=== PATIENT | female | born 2000 | race Caucasian/White ===

== ENCOUNTER → 2019-01-26 | Outpatient (CLI) | payer OTHER ==
--- NOTE | 2019-01-26 15:25 | REP ---
MRI RIGHT KNEE WITHOUT CONTRAST: HISTORY: Right knee pain. Question bucket-handle tear. Comparison MRI right knee July 23, 2016. Comparison knee radiographs June 12, 2015. The patient is status post ACL reconstruction. TECHNIQUE: Axial, coronal, and sagittal imaging planes utilized. T1- and T2-weighted scans were obtained in the usual fashion with and without fat saturation. MRI FINDINGS: There is a moderate size joint effusion. Cortical and medullary bone signal intensity are normal except for the presence of the distal femoral and proximal tibial tunnel associated with ACL reconstruction surgery. The tendon graft for the ACL appears intact in its synovial and intraosseous extent. Patellar and quadriceps tendons are intact. There is no evidence of medial or lateral collateral ligament disruption. There is no visible Dias's cyst. There is an extensive tear of the medial meniscus with displaced meniscal material extending towards the intercondylar notch. This is indicative of a large displaced bucket-handle tear of the medial meniscus. No lateral meniscal tear is appreciated. The articular cartilage surfaces are smooth. No other significant finding. IMPRESSION: Large displaced bucket-handle tear medial meniscus. Moderate to large joint effusion. Status post ACL reconstruction surgery. Electronically Signed by Andrew Sánchez MD 01/26/2019 05:31 P
== END ==
LOC: M RAD 12:30
PROVIDERS: ATTEND Orthopaedic Surgery Sports Medicine
DX: M25.461 Effusion, right knee (principal); S83.251A Bucket-handle tear of lateral meniscus, current injury, right knee, initial encounter; X58.XXXA Exposure to other specified factors, initial encounter; Y92.9 Unspecified place or not applicable

== ENCOUNTER 2019-02-03 11:43 | Day surgery (SDC) | payer OTHER ==
[~2019-02-03] VITALS: Ht 175.3 cm; Wt 60.8 kg
[2019-02-03] MEDS ORDERED: dexameTHASONE 10 MG/1 ML VIAL PRES.FREE (J1100) ONE (11:44)
[2019-02-03] MEDS ORDERED: ROPIvacaine 0.5% 30 ML INJECTION (J2795 PER 1MG) ONE (11:44)
[2019-02-03] MEDS ORDERED: ceFAZolin 2 GM/D5W 50 ML IV BAG (J0690 PER 500MG) As Ordered ONE (12:09)
[2019-02-03 12:16] LABS: URINE PREG TEST NEGATIVE (NEGATIVE)
[2019-02-03] MEDS ORDERED: MIDAZOLAM INJ 2 MG/2 ML VIAL (J2250) As Ordered ONE ×2 (13:31→13:50)
[2019-02-03] MEDS ORDERED: fentaNYL 100 MCG/2 ML INJECTION (J3010) As Ordered ONE ×2 (13:31→13:51)
[2019-02-03] MEDS ORDERED: PROPOFOL 200 MG/20 ML VIAL As Ordered ONE (13:49)
[2019-02-03] MEDS ORDERED: ONDANSETRON 4MG/2ML VIAL (J2405) As Ordered ONE (13:49)
[2019-02-03] MEDS ORDERED: LIDOCAINE 2% INJ 100 MG/5 ML SDV (FOR ANES.) As Ordered ONE (13:49)
[2019-02-03] MEDS ORDERED: dexameTHASONE 4 MG/ML 1ML VIAL (J1100) As Ordered ONE (13:49)
[2019-02-03] MEDS ORDERED: fentaNYL 100 MCG/2 ML INJECTION (J3010) IV ONE (14:00)
[2019-02-03] MEDS ORDERED: MIDAZOLAM INJ 2 MG/2 ML VIAL (J2250) IV ONE (14:00)
[2019-02-03] MEDS ORDERED: ROPIvacaine 0.5% 30 ML INJECTION (J2795 PER 1MG) As Ordered ONE (14:17)
[2019-02-03] MEDS ORDERED: PHENYLephrine HCL 500 MCG/5 ML (100MCG/ML) SYRINGE (J2370) As Ordered ONE (14:58)
[2019-02-03] MEDS ORDERED: KETOROLAC 60 MG/2 ML VIAL (J1885) As Ordered ONE (15:34)
[2019-02-03] MEDS: fentaNYL 100 MCG/2 ML INJECTION (J3010) IV PRN ×4 (16:10→16:33)
[2019-02-03] MEDS ORDERED: LR 1,000 ML IV SCH ×2 (16:15)
[2019-02-03] MEDS ORDERED: PERCOCET 5MG/325MG TAB PO PRN ×2 (16:15→17:00)
[2019-02-03] MEDS ORDERED: MORPHINE 4 MG/ML 1ML VIAL/SYRINGE (J2270) IV PRN (16:15)
[2019-02-03] MEDS ORDERED: ACETAMINOPHEN TAB 650MG DOSE (2X325MG) PO PRN (16:15)
[2019-02-03] MEDS ORDERED: ONDANSETRON 4MG/2ML VIAL (J2405) IV PRN ×2 (16:15)
[2019-02-03 17:05] VITALS: BP 129/71
--- NOTE | 2019-02-03 19:02 | RO ---
DATE OF PROCEDURE: 02/03/2019 PREOPERATIVE DIAGNOSIS: POSTOPERATIVE DIAGNOSIS: PLANNED PROCEDURE: Right knee arthroscopy intra-articular surgery, fragment versus repair medial meniscus. PROCEDURE PERFORMED: Right knee arthroscopy, debridement medial femoral condyle and debridement of cyclops lesion. SURGEON: Mauricio Esquivel MD DEATH SURVEYS CODER: Mat Cottrell ANESTHESIA: General anesthesia plus block. OPERATIVE PREAMBLE: This 18-year-old female had ACL reconstruction enhancing autograft Dr. Abad a few years ago. She was experiencing intermittent locking up of her knee with blocked extension when I saw her now about 10 days ago. We had obtained a preoperative MRI that showed what appeared to be a bucket handle medial meniscus tear. I talked about the pros, cons, risks and benefits of going ahead with arthroscopy, intra-articular surgery and debridement versus repair of the medial meniscus injury. I also counseled her as to examination of the ACL while under anesthetic. The ACL appeared intact on MRI, however, with the block to extension the physical exam is notoriously unreliable for this, so I did psychologist counseling her of the possibility of going ahead with revision ACL reconstruction. I examined Kavita in holding and marked the side and confirmed that she wished to proceed. DESCRIPTION OF PROCEDURE: The patient was brought to the operating theater. She was placed supine on the operating room table. Site and the patient was confirmed. Two grams of IV Ancef was administered prior to the start the case. 24 inch tourniquet was applied to the right thigh. A lateral post was used. Leg was prepped and draped in the usual sterile fashion. A preoperative time-out was performed. Leg was elevated and then the tourniquet was inflated to 250 mmHg. I began by making a high anterolateral portal. I thoroughly performed an intra-articular examination of the knee. Pump pressure was 35 mmHg. The undersurface of the patella appeared to have some grade 1 softening of the cartilage. The trochlea also had some grade 1 softening, but no obvious full-thickness defects. I went into the latera gutter, examined the popliteus. There were no obvious loose bodies there. I then examined the lateral compartment. This was normal. No obvious cartilage lesions. Meniscus was normal. There was no obvious instability of the meniscus. Then I examined the notch. There is what appeared to be a soft tissue mass just anterior to the ACL blocking extension. I thoroughly debrided this away. She achieved full extension at that point easily. Examination of the PCL looked normal. The ACL graft fibers were definitely vertical, nearly 90 degrees. There were some fibers remaining. The fibers did not appear taut but they were definitely not loose. They did appear to be inserting properly as well as a normal tibial footprint. Femoral footprint was definitely high in the notch and vertical. I then examined the medial compartment. There were grade 2 changes on both the femur and tibia that I debrided. Slightly worse near grade 3 changes were noted on the lateral aspect of the medial femoral condyle. Again I debrided these away. I examined the meniscus. The meniscus did appear intact along its length with stable roots. There is some meniscal capsular sprain on the lateral position of the medial meniscus at approximately the junction of the mid body and the posteromedial horn. This was not unstable. I then turned my attention to the clinical exam of the knee again. Preoperatively it felt like there was a grade 1 Danuta with my examination under anesthetic and no pivot shift. Now that I was able to get her into full extension with debriding the cyclops lesion, she definitely had a grade 2 pivot shift and a grade 1 Danuta with a firm endpoint. Examination of the ACL intra-articularly with anterior drawer revealed it to be stable and the fibers to be solid, but slightly diminutive in their appearance. I also examined the medial gutter and again there was no loose body. There was also some small scar tissue just posterior to the patellar tendon that I also debrided. At that point, I decided to terminate the procedure as my preoperative goal of achieving full range of motion was achieved. We thoroughly irrigated the knee, followed by infiltrating the portals with 4 mL each of 0.5% Marcaine and then closing the portal sites with interrupted #3-0 Ethilon suture. Tourniquet was taken down. Adaptic as well as sterile 4 x 8 gauze, ABD dressing and sterile 6 inch jean-pierre bandage was applied to the knee. The patient was transferred off the operating table and taken to postanesthetic care in stable condition. All sponge, needle, and instrument counts were correct. There were no complications or excessive blood loss associated with the procedure. PLAN: Plan for the patient at this point is to be weightbearing as tolerated. They do not need a brace. I did speak with her mother after surgery and she is asking for new custom fitted ACL brace which we will have to prescribe in clinic. I have encouraged her to weightbear as tolerated and to try to rehabilitation the knee aggressively at this point over the next few weeks. I have discussed my findings with her mother and also talked to her in clinic once the anesthetic had worn off about the definite possibility of trying to return to aggressive sports and the possibility of having persistent intrarotatory instability of her knee. I think she will gain her range of motion back at this point but I am definitely worried that she may have some residual instability given the vertical nature of the graft and the definite pivot-shift under anesthesia. If she experiences instability episodes of the knee then we will definitely know how to proceed from there and she will require revision ACL reconstruction. Looking forward to seeing her back in the clinic in approximately 1-2 weeks time.
[2019-02-04] MEDS ORDERED: DESFLURANE 240 ML INHALANT As Ordered ONE (13:29)
[2019-02-04] MEDS ORDERED: SEVOFLURANE INHAL SOLN 250 ML BTL As Ordered ONE ×2 (13:30→13:31)
== END 2019-02-03 18:30 | disposition home or self-care (01) ==
LOC: M SDC 11:43
PROVIDERS: ATTEND Orthopaedic Surgery Sports Medicine
DX: S83.211A Bucket-handle tear of medial meniscus, current injury, right knee, initial encounter (principal); Z88.0 Allergy status to penicillin; X58.XXXA Exposure to other specified factors, initial encounter; Y92.89 Other specified places as the place of occurrence of the external cause; Y93.9 Activity, unspecified; Y99.9 Unspecified external cause status
CPT/HCPCS: 29877; 64447; 84703; J0690; J1100; J1885; J2250; J2370; J2405; J2795; J3010

== ENCOUNTER 2019-04-14 07:59 | Outpatient (RCR) | payer OTHER | END 2019-04-17 | LOC: M PT 07:59 | PROVIDERS: ATTEND Orthopaedic Surgery Sports Medicine | DX: S83.211D Bucket-handle tear of medial meniscus, current injury, right knee, subsequent encounter (principal); X58.XXXD Exposure to other specified factors, subsequent encounter ==

== ENCOUNTER 2019-04-20 08:00 | Outpatient (RCR) | payer OTHER | END 2019-05-18 | LOC: M PT 08:00 | PROVIDERS: ATTEND Orthopaedic Surgery Sports Medicine | DX: S83.211D Bucket-handle tear of medial meniscus, current injury, right knee, subsequent encounter (principal) ==

== ENCOUNTER 2020-01-23 05:58 | Day surgery (SDC) | payer OTHER ==
[~2020-01-23] VITALS: Ht 172.7 cm; Wt 61.2 kg
[~2020-01-23 05:58] MED LIST: ISIB1TAB PO
[2020-01-23] MEDS ORDERED: LR 1,000 ML IV ONE (06:00)
[2020-01-23] MEDS ORDERED: MIDAZOLAM INJ 2 MG/2 ML VIAL (J2250) As Ordered ONE (06:43)
[2020-01-23] MEDS ORDERED: ROCURONIUM BROMIDE 50 MG/5 ML VIAL As Ordered ONE (06:44)
[2020-01-23] MEDS ORDERED: fentaNYL 250 MCG/5 ML INJECTION (J3010) As Ordered ONE (06:44)
[2020-01-23] MEDS ORDERED: dexameTHASONE 4 MG/ML 1ML VIAL (J1100 PER 1MG) As Ordered ONE ×3 (06:44→06:50)
[2020-01-23] MEDS ORDERED: SUGAMMADEX SODIUM 500 MG/5 ML VIAL (BRIDION) As Ordered ONE (06:44)
[2020-01-23] MEDS ORDERED: propofoL 200 MG/20 ML VIAL As Ordered ONE ×2 (06:44→06:51)
[2020-01-23] MEDS ORDERED: ONDANSETRON 4MG/2ML VIAL (J2405) As Ordered ONE ×2 (06:44→09:04)
[2020-01-23] MEDS ORDERED: LIDOCAINE 2% INJ 100 MG/5 ML SDV (FOR ANES.) As Ordered ONE (06:44)
[2020-01-23] MEDS ORDERED: PHENYLephrine HCL 500 MCG/5 ML (100MCG/ML) SYRINGE (J2370) As Ordered ONE (06:44)
[2020-01-23] MEDS ORDERED: ePHEDrine SULFATE 25 MG/5 ML(5MG/ML) SYRINGE As Ordered ONE (06:45)
[2020-01-23] MEDS ORDERED: CLINDAMYCIN 600 MG/50 ML PREMIX BAG As Ordered ONE (07:12)
[2020-01-23] MEDS ORDERED: CLINDAMYCIN 600 MG in IV 1 EA IV ONE (07:15)
[2020-01-23] MEDS ORDERED: ROPIvacaine 0.5% 30 ML INJECTION (J2795 PER 1MG) As Ordered ONE (07:20)
[2020-01-23] MEDS ORDERED: ESMOLOL INJ 100MG/10ML VIAL As Ordered ONE (07:49)
[2020-01-23] MEDS ORDERED: ACETAMINOPHEN 1000MG 100ML IV BTL (OFIRMEV) (J0131 PER 10MG) As Ordered ONE (07:56)
[2020-01-23] MEDS ORDERED: fentaNYL 100 MCG/2 ML INJECTION (J3010) As Ordered ONE (09:01)
[2020-01-23] MEDS: fentaNYL 100 MCG/2 ML INJECTION (J3010) IV PRN ×4 (09:03→09:18)
[2020-01-23] MEDS ORDERED: LR 1,000 ML IV SCH ×2 (09:15→10:15)
[2020-01-23] MEDS ORDERED: oxyCODONE 5MG TAB PO PRN (09:15)
[2020-01-23] MEDS ORDERED: MORPHINE 2 MG/ML 1ML VIAL (J2270) IV PRN ×2 (09:15→10:15)
[2020-01-23] MEDS ORDERED: KETOROLAC 30 MG/ML VIAL (J1885) As Ordered ONE (09:59)
[2020-01-23] MEDS ORDERED: MORPHINE 10 MG/ML 1ML VIAL (J2270) As Ordered ONE (09:59)
--- NOTE | 2020-01-23 10:06 | RO ---
DATE OF PROCEDURE: 01/23/2020 PREOPERATIVE DIAGNOSIS: Right knee bucket-handle medial meniscus tear. POSTOPERATIVE DIAGNOSIS: Right knee bucket-handle medial meniscus tear. PLANNED PROCEDURE: Right knee arthroscopy and partial medial meniscectomy versus repair. PROCEDURE PERFORMED: Right knee arthroscopy, medial meniscus repair. SURGEON: Dr. Mauricio Esquivel. MOVEMENT THERAPIST: Neil Hernandez PA-C. ANESTHESIA: General. 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 She twisted her knee. MRI showed bucket-handle meniscus tear. We talked about the pros and cons, risks and benefits of going ahead with the procedure, include but not limited to infection pain, stiffness bleeding, neurovascular injury, osteoarthritis, failure of the repair blood clots, and other risks, as well as the risk of coronavirus due to the current outbreak. She wished to go ahead. I reiterated the risk in preoperative holding, marked the right lower extremity and proceeded to surgery. DESCRIPTION OF PROCEDURE: The patient was brought to operating theater. 600 mg IV clindamycin was administered for preoperative antibiotic prophylaxis due to allergy to penicillin. The patient was placed supine on the operating table. Tourniquet was applied the right thigh appropriately padded. All bony prominences were padded. positioner was used on the patient's right side. General anesthesia was induced. Preoperative time-out was performed to confirm the site, patient and the surgery. Limb was prepped and draped the usual sterile fashion allowing over 3 minutes prep solution drying time. Limb was elevated, tourniquet was inflated to 250 mmHg for the duration of the case. Standard high anterolateral arthroscopy portal was created. Full intra-articular extent of the knee was examined. Patellofemoral joint was normal. Lateral portal was normal. Anterior cruciate ligament (ACL) and posterior cruciate ligament (PCL) appeared normal similar to last time I performed arthroscopy for her. There was an obvious displaced into the notch medial meniscus bucket-handle tear. This extended from the posterior horn to approximately the mid aspect of the meniscus. It was in the peripheral one-third. It reduced nicely and the meniscus tissue appeared normal. As such I elected to go ahead with the repair versus an excision. The capsular side was then debrided to bleeding edges using a shaving instrument. The meniscus was then reduced and held in place. I used 6 Saavedra-Nephew a 30 degree reverse curved FA all inside suture implants. I used two at the apex of the tear as well as two posteriorly on the superior surface, and two posteriorly on the inferior surface. This achieved good repair. Repair assessed a stable and solid to probing. The knee was thoroughly irrigated. Small cartilage fraying of the femur and tibial sides of the medial compartment was debrided to stable margins. Arthroscopy pictures were taken and printed out. The scope was withdrawn, the tourniquet taken down. Skin was cleaned with a dry dressing. This accessory lateral portal to place one of all insight sutures as well as, all three portal sites were closed with interrupted #3-0 Ethilon suture. Adaptic, 4 x 8 gauze and ABD dressings were then placed on the knee and overwrapped with sterile 6-inch NAWAF bandage. Patient's knee was then placed into a knee mobilizer. The patient was woken up from general anesthetic, transferred off the operating table and taken to the postanesthetic care unit in stable condition. All sponge, needle, strong counts were correct. No complications. Estimated blood loss 50 mL and likely less than this. PLAN: The patient is to be non-weightbearing for 6 weeks, passive range of motion 0-90 in a hinged knee brace. Will be discharged home according to day surgery criteria. For venous thromboembolism (VTE) prophylaxis, I recommend one 81 mg oral aspirin once a day for the 6 weeks of limited weightbearing. Followup in the clinic in 2 weeks' time. Change the dressing in 2 days. The customer care assistant Duncan Hernandez was instrumental in achieving visualization and helping position the knee and completing the case.
[2020-01-23] MEDS ORDERED: KETOROLAC 30 MG/ML VIAL (J1885) IV PRN (10:15)
[2020-01-23] MEDS ORDERED: PERCOCET 5MG/325MG TAB PO PRN (10:15)
[2020-01-23] MEDS ORDERED: ONDANSETRON 4MG/2ML VIAL (J2405) IV PRN (10:15)
[2020-01-23] MEDS ORDERED: ACETAMINOPHEN TAB 650MG DOSE (2X325MG) PO PRN (10:15)
[2020-01-23] MEDS: MORPHINE 2 MG/ML 1ML VIAL (J2270) IV PRN ×2 (10:22→10:36)
[2020-01-23] MEDS ORDERED: diphenhydrAMINE INJ 50MG/ML VIAL (J1200) As Ordered ONE (10:55)
[2020-01-23] MEDS ORDERED: diphenhydrAMINE INJ 50MG/ML VIAL (J1200) IV ONE (11:00)
[2020-01-23 12:55] VITALS: BP 132/70
== END 2020-01-23 12:55 | disposition home or self-care (01) ==
LOC: M SDC 05:58
PROVIDERS: ATTEND Orthopaedic Surgery Sports Medicine
DX: S83.211A Bucket-handle tear of medial meniscus, current injury, right knee, initial encounter (principal); X50.0XXA Overexertion from strenuous movement or load, initial encounter; Y93.65 Activity, lacrosse and field hockey; Y92.89 Other specified places as the place of occurrence of the external cause; Y99.9 Unspecified external cause status; Z88.0 Allergy status to penicillin; Z88.8 Allergy status to other drugs, medicaments and biological substances
CPT/HCPCS: 29882; 81025; J0131; J1100; J1200; J1885; J2250; J2270; J2370; J2405; J2795; J3010